=== PATIENT | female | born 1950 | race Caucasian/White ===

== ENCOUNTER 2020-07-18 07:00 | Inpatient (IN) | payer OTHER ==
[~2020-07-18] VITALS: Ht 165.1 cm; Wt 69.4 kg
[~2020-07-18 07:00] MED LIST: ATACAND16 MG PO; ATACAND4 MG; EVISTA60 MG; LIPITOR20 MG; TOPROL XL25 MG PO; ZIAC 10/6.25 MG1 TAB PO
[2020-07-18] MEDS ORDERED: ZIAC PO (09:54)
[2020-07-18] MEDS ORDERED: LIPIT PO (09:54)
== END 2020-07-26 17:25 | DRG 470 ==
LOC: O/R 07-24 06:32 → SURH 07-24 06:32
PROVIDERS: ADMIT Orthopaedic Surgery; ATTEND Orthopaedic Surgery
PROC: 0SRD0J9 Replacement of Left Knee Joint with Synthetic Substitute, Cemented, Open Approach (ICD-10-PCS; principal; 2020-07-24 07:00)
DX: M17.12 Unilateral primary osteoarthritis, left knee (principal); D62 Acute posthemorrhagic anemia; M85.662 Other cyst of bone, left lower leg; I10 Essential (primary) hypertension; E78.5 Hyperlipidemia, unspecified; Z20.822 Contact with and (suspected) exposure to COVID-19

== ENCOUNTER 2020-11-20 12:33 | Outpatient (CLI) | payer OTHER ==
[~2020-11-20 12:33] MED LIST changes: +LIPIT PO; +ZIAC PO
== END 2020-11-20 12:41 | disposition home or self-care (01) ==
LOC: RAD 12:33
PROVIDERS: ATTEND Orthopaedic Surgery
DX: M43.17 Spondylolisthesis, lumbosacral region (principal); M54.5 Low back pain; M25.551 Pain in right hip; M25.552 Pain in left hip; M25.561 Pain in right knee; M25.562 Pain in left knee; M25.572 Pain in left ankle and joints of left foot

== ENCOUNTER 2021-07-23 14:12 | Emergency (ER) | payer OTHER ==
[~2021-07-23] VITALS: Ht 165.1 cm; Wt 71.2 kg
== END 2021-07-23 17:38 | disposition home or self-care (01) ==
LOC: ER 14:12
DX: M70.31 Other bursitis of elbow, right elbow (principal)

== ENCOUNTER 2022-02-17 09:30 | Outpatient (CLI) | payer OTHER | END 2022-02-17 09:41 | disposition home or self-care (01) | LOC: LAB 09:30 | DX: E53.8 Deficiency of other specified B group vitamins (principal); E03.9 Hypothyroidism, unspecified ==

== ENCOUNTER 2022-02-19 10:33 | Outpatient (CLI) | payer OTHER | END 2022-02-19 10:36 | disposition home or self-care (01) | LOC: MRI 10:33 | PROVIDERS: ATTEND Psychiatry & Neurology Clinical Neurophysiology | DX: G35 Multiple sclerosis (principal); G31.84 Mild cognitive impairment of uncertain or unknown etiology | CPT/HCPCS: 70551 ==

== ENCOUNTER 2024-12-06 12:07 | Emergency (ER) | payer OTHER ==
[~2024-12-06] VITALS: Ht 162.6 cm; Wt 65.8 kg
[2024-12-06] MEDS ORDERED: CEFTRIAXONE SODIUM 1,000 MG VIAL IM ONE (13:45)
[2024-12-06] MEDS ORDERED: CEFTRIAXONE SODIUM 1,000 MG VIAL ONE (14:04)
== END 2024-12-06 21:02 | disposition home or self-care (01) ==
LOC: ER 12:07
DX: L03.019 Cellulitis of unspecified finger (principal); E11.9 Type 2 diabetes mellitus without complications
CPT/HCPCS: 96372; 99282; J0696